=== PATIENT | male | born 1990 | race Caucasian/White ===

== ENCOUNTER 2016-07-16 05:53 | Emergency (ER) | payer SELFPAY ==
[2016-07-16] MEDS ORDERED: SODIUM CHLORIDE 0.9% FLUSH 10 ML FLUSH IVF PRN (06:15)
[2016-07-16] MEDS ORDERED: LORazepam 2 MG/ML VIAL IV PUSH ONE (06:15)
[2016-07-16] MEDS ORDERED: SODIUM CHLOR 0.9% 1000 ML INJ 1,000 ML IV ONE (06:15)
[2016-07-16 06:16] VITALS: PULSE 125; RESP 22; O2SAT 97
[2016-07-16 06:24] LABS: AUTOMATED NEUTROPHIL # 7.4 TH/MM3 (1.8-7.7); BASOPHIL % 0.5 % (0.0-2.0); EOSINOPHIL # 0.1 TH/MM3 (0-0.4); EOSINOPHIL % 0.6 % (0.0-4.0); HEMATOCRIT 42.1 % (39.0-51.0); HEMO FLAGS DIFF FINAL; LYMPH % 15.3 % (9.0-44.0); LYMPHOCYTE # 1.4 TH/MM3 (1.0-4.8); MEAN CELL VOLUME 89.4 FL (80.0-100.0); MEAN CORPUSCULAR HGB CONC 33.6 % (32.0-36.0); MONO % 5.1 % (0.0-8.0); NEUT % 78.5 % (16.0-70.0); PLATELET COUNT 186 TH/MM3 (150-450); RED BLOOD COUNT 4.71 MIL/MM3 (4.50-5.90); RED CELL DISTRIBUTION WIDTH 12.8 % (11.6-17.2); WHITE BLOOD COUNT 9.4 TH/MM3 (4.0-11.0)
--- NOTE | 2016-07-16 06:25 | PD ---
HPI Chief Complaint: OD/ Ingestion Time Seen by Provider: 06:03 Travel History International Travel<30 days: No Contact w/Intl Traveler<30days: No History of Present Illness HPI Patient is a 26-year-old male brought in by EMS after he was found unconscious by his mother. Per EMS his mother went to wake him up and had troubles so she called 911. Patient was awake and alert when EMS arrived. He admits to taking 7 or 8 equal pills which are [id number] sleep aids. There is also a lot of Benadryl found around him. He denies taking anything else. He says he was taking the medication to get high. He denies suicidal or homicidal ideation. He denies any complaints at this time. [facility] Past Medical History Medical History: Denies Significant Hx Past Surgical History Surgical History: No Previous Surgery Social History Tobacco Use: Yes Allergies-Medications (Allergen,Severity, Reaction): Coded Allergies: No Known Allergies (Unverified , 07/16/16) Reported Meds & Prescriptions Reported Meds & Active Scripts Active No Active Prescriptions or Reported Medications Review of Systems Except as stated in HPI: all other systems reviewed are Neg General / Constitutional: No: Fever, Chills Eyes: No: Blurred Vision HENT: No: Headaches, Lightheadedness Cardiovascular: No: Chest Pain or Discomfort Respiratory: No: Shortness of Breath Gastrointestinal: No: Nausea, Vomiting, Abdominal Pain Musculoskeletal: No: Myalgias, Edema Skin: No Rash, No Change in Pigmentation Physical Exam Narrative GENERAL: Awake and alert, in no acute distress. SKIN: Focused skin assessment warm/dry. HEAD: Atraumatic. Normocephalic. EYES: Pupils equal and round. No scleral icterus. Enlarged pupils. ENT: Mucous membranes pink and moist. NECK: Trachea midline. No JVD. CARDIOVASCULAR: Tachycardic. No murmur appreciated. RESPIRATORY: No accessory muscle use. Clear to auscultation. Breath sounds equal bilaterally. GASTROINTESTINAL: Abdomen soft, non-tender, nondistended. MUSCULOSKELETAL: No obvious deformities. No clubbing. No cyanosis. No edema. NEUROLOGICAL: Awake and alert. No obvious cranial nerve deficits. Motor grossly within normal limits. Normal speech. PSYCHIATRIC: Appropriate mood and affect; insight and judgment normal. Data Data Last Documented VS Vital Signs Date Time Temp Pulse Resp B/P Pulse Ox O2 Delivery O2 Flow Rate FiO2 07/16/16 12:02 96 07/16/16 08:21 98.9 117 24 140/71 Room Air Orders Electrocardiogram (07/16/16 06:03) Complete Blood Count With Diff (07/16/16 06:03) Comprehensive Metabolic Panel (07/16/16 06:03) Urinalysis - C+S If Indicated (07/16/16 06:03) Ua Includes Microscopic (07/16/16 06:03) Iv Access Insert/Monitor (07/16/16 06:03) Ecg Monitoring (07/16/16 06:03) Oximetry (07/16/16 06:03) Sodium Chloride 0.9% Flush (Ns Flush) (07/16/16 06:15) Call Poison Control (07/16/16 06:03) Drug Screen, Random Urine (07/16/16 06:03) Alcohol (Ethanol) (07/16/16 06:03) Salicylates (Aspirin) (07/16/16 06:03) Tylenol (Acetaminophen) (07/16/16 06:03) Lorazepam Inj (Ativan Inj) (07/16/16 06:15) Sodium Chlor 0.9% 1000 Ml Inj (Ns 1000 M (07/16/16 06:15) Psych Screen (07/16/16 06:33) Diet Regular Basic (07/16/16 Breakfast) Labs Laboratory Tests Test 07/16/16 07/16/16 06:00 08:40 White Blood Count 9.4 TH/MM3 Red Blood Count 4.71 MIL/MM3 Hemoglobin 14.1 GM/DL Hematocrit 42.1 % Mean Corpuscular Volume 89.4 FL Mean Corpuscular Hemoglobin 30.0 PG Mean Corpuscular Hemoglobin 33.6 % Concent Red Cell Distribution Width 12.8 % Platelet Count 186 TH/MM3 Mean Platelet Volume 8.7 FL Neutrophils (%) (Auto) 78.5 % Lymphocytes (%) (Auto) 15.3 % Monocytes (%) (Auto) 5.1 % Eosinophils (%) (Auto) 0.6 % Basophils (%) (Auto) 0.5 % Neutrophils # (Auto) 7.4 TH/MM3 Lymphocytes # (Auto) 1.4 TH/MM3 Monocytes # (Auto) 0.5 TH/MM3 Eosinophils # (Auto) 0.1 TH/MM3 Basophils # (Auto) 0.0 TH/MM3 CBC Comment DIFF FINAL Differential Comment Sodium Level 141 MEQ/L Potassium Level 3.5 MEQ/L Chloride Level 107 MEQ/L Carbon Dioxide Level 25.0 MEQ/L Anion Gap 9 MEQ/L Blood Urea Nitrogen 13 MG/DL Creatinine 1.20 MG/DL Estimat Glomerular Filtration 74 ML/MIN Rate Random Glucose 80 MG/DL Calcium Level 8.7 MG/DL Total Bilirubin 0.4 MG/DL Aspartate Amino Transf 17 U/L (AST/SGOT) Alanine Aminotransferase 21 U/L (ALT/SGPT) Alkaline Phosphatase 57 U/L Total Protein 7.1 GM/DL Albumin 4.8 GM/DL Salicylates Level LESS THAN 1.7 MG/DL Acetaminophen Level LESS THAN 2.0 MCG/ML Ethyl Alcohol Level LESS THAN 3 MG/DL Urine Color YELLOW Urine Turbidity CLEAR Urine pH 6.5 Urine Specific [place] 1.015 Urine Protein TRACE mg/dL Urine Glucose (UA) NEG mg/dL Urine Ketones NEG mg/dL Urine Occult Blood NEG Urine Nitrite NEG Urine Bilirubin NEG Urine Urobilinogen LESS THAN 2.0 MG/DL Urine Leukocyte Esterase NEG Urine WBC 1 /hpf Urine Hyaline Casts 4 /lpf Urine Granular Casts 1 /lpf Urine Mucus FEW /lpf Microscopic Urinalysis Comment CULT NOT INDICATED Urine Opiates Screen NEG Urine Barbiturates Screen NEG Urine Amphetamines Screen NEG Urine Benzodiazepines Screen NEG Urine Cocaine Screen NEG Urine Cannabinoids Screen NEG MDM Medical Decision Making Medical Screen Exam Complete: Yes Emergency Medical Condition: Yes Differential Diagnosis overdose vs intoxication vs dehydration Narrative Course Patient is a 26-year-old male brought in by EMS after his mother was unable to wake him up. Patient admits to taking 7 or 8 equal sleeping pills. His pupils are large on exam, he is tachycardic. IV established, labs sent. Given IV fluids and Ativan. Poison control contacted and advises supportive care. Patient's mother is concerned as he has done this before. She would like him seen by a psychiatrist. Patient states he was trying to get high, denies trying to hurt himself. Patient signed out to Dr. Mays to follow-up labs and disposition. Scripts No Active Prescriptions or Reported Meds Freida Holder MD Jul 16, 2016 06:25
[2016-07-16 07:08] LABS: ACETAMINOPHEN LESS THAN 2.0 MCG/ML (10.0-30.0); ALKALINE PHOSPHATASE 57 U/L (45-117); ALT (GPT) 21 U/L (12-78); ANION GAP 9 MEQ/L (5-15); AST (GOT) 17 U/L (15-37); BLOOD UREA NITROGEN 13 MG/DL (7-18); CHLORIDE 107 MEQ/L (98-107); GLOMERULAR FILTRATION RATE 74 ML/MIN (>89); POTASSIUM 3.5 MEQ/L (3.5-5.1); SODIUM (NA) 141 MEQ/L (136-145); TOTAL BILIRUBIN ADULT 0.4 MG/DL (0.2-1.0)
--- NOTE | 2016-07-16 07:09 | PD ---
Physical Exam Date Seen by Provider: Jul 16, 2016 Narrative Patient was signed out to me at 7 AM pending laboratory evaluation and psych evaluation. Patient admits to taking Benadryl at about 4 AM in an effort to get high. He denies suicidal ideation. He states that he feels fine currently. Data Data Last Documented VS Vital Signs Date Time Temp Pulse Resp B/P Pulse Ox O2 Delivery O2 Flow Rate FiO2 07/16/16 08:21 98.9 117 24 140/71 98 Room Air Orders Electrocardiogram (07/16/16 06:03) Complete Blood Count With Diff (07/16/16 06:03) Comprehensive Metabolic Panel (07/16/16 06:03) Urinalysis - C+S If Indicated (07/16/16 06:03) Ua Includes Microscopic (07/16/16 06:03) Iv Access Insert/Monitor (07/16/16 06:03) Ecg Monitoring (07/16/16 06:03) Oximetry (07/16/16 06:03) Sodium Chloride 0.9% Flush (Ns Flush) (07/16/16 06:15) Call Poison Control (07/16/16 06:03) Drug Screen, Random Urine (07/16/16 06:03) Alcohol (Ethanol) (07/16/16 06:03) Salicylates (Aspirin) (07/16/16 06:03) Tylenol (Acetaminophen) (07/16/16 06:03) Lorazepam Inj (Ativan Inj) (07/16/16 06:15) Sodium Chlor 0.9% 1000 Ml Inj (Ns 1000 M (07/16/16 06:15) Psych Screen (07/16/16 06:33) Diet Regular Basic (07/16/16 Breakfast) Labs Laboratory Tests Test 07/16/16 07/16/16 06:00 08:40 White Blood Count 9.4 TH/MM3 Red Blood Count 4.71 MIL/MM3 Hemoglobin 14.1 GM/DL Hematocrit 42.1 % Mean Corpuscular Volume 89.4 FL Mean Corpuscular Hemoglobin 30.0 PG Mean Corpuscular Hemoglobin 33.6 % Concent Red Cell Distribution Width 12.8 % Platelet Count 186 TH/MM3 Mean Platelet Volume 8.7 FL Neutrophils (%) (Auto) 78.5 % Lymphocytes (%) (Auto) 15.3 % Monocytes (%) (Auto) 5.1 % Eosinophils (%) (Auto) 0.6 % Basophils (%) (Auto) 0.5 % Neutrophils # (Auto) 7.4 TH/MM3 Lymphocytes # (Auto) 1.4 TH/MM3 Monocytes # (Auto) 0.5 TH/MM3 Eosinophils # (Auto) 0.1 TH/MM3 Basophils # (Auto) 0.0 TH/MM3 CBC Comment DIFF FINAL Differential Comment Sodium Level 141 MEQ/L Potassium Level 3.5 MEQ/L Chloride Level 107 MEQ/L Carbon Dioxide Level 25.0 MEQ/L Anion Gap 9 MEQ/L Blood Urea Nitrogen 13 MG/DL Creatinine 1.20 MG/DL Estimat Glomerular Filtration 74 ML/MIN Rate Random Glucose 80 MG/DL Calcium Level 8.7 MG/DL Total Bilirubin 0.4 MG/DL Aspartate Amino Transf 17 U/L (AST/SGOT) Alanine Aminotransferase 21 U/L (ALT/SGPT) Alkaline Phosphatase 57 U/L Total Protein 7.1 GM/DL Albumin 4.8 GM/DL Salicylates Level LESS THAN 1.7 MG/DL Acetaminophen Level LESS THAN 2.0 MCG/ML Ethyl Alcohol Level LESS THAN 3 MG/DL Urine Color YELLOW Urine Turbidity CLEAR Urine pH 6.5 Urine Specific [place] 1.015 Urine Protein TRACE mg/dL Urine Glucose (UA) NEG mg/dL Urine Ketones NEG mg/dL Urine Occult Blood NEG Urine Nitrite NEG Urine Bilirubin NEG Urine Urobilinogen LESS THAN 2.0 MG/DL Urine Leukocyte Esterase NEG Urine WBC 1 /hpf Urine Hyaline Casts 4 /lpf Urine Granular Casts 1 /lpf Urine Mucus FEW /lpf Microscopic Urinalysis Comment CULT NOT INDICATED [facility] Supervised Visit with ROSA: No Narrative Course Patient is lying in the room using his cell phone in no acute distress. He is awake and alert and fully oriented at this time. CBC & BMP Diagram 07/16/16 06:00 Salicylates, acetaminophen and alcohol levels are not detected. This patient is now medically clear for psychiatric evaluation. Diagnosis Primary Impression: Overdose of common cold drug Qualified Code: T48.5X4A - Overdose of common cold drug, undetermined intent, initial encounter Scripts No Active Prescriptions or Reported Meds Disposition: DISCHARGE HOME Condition: Stable Kathryn Mays MD Jul 16, 2016 07:09
[2016-07-16 08:21] VITALS: BP 140/71; PULSE 117; RESP 24; TEMP 98.9; O2SAT 98
[2016-07-16 09:02] LABS: BLOOD, URINE NEG (NEG); GLUCOSE,URINE NEG (NEG); GRANULAR CAST, URINE 1 /lpf; HYALINE CAST, URINE 4 /lpf (RARE); KETONE, URINE NEG (NEG); MUCUS URINE FEW /lpf (OCC); NITRITE,URINE NEG (NEG); PH, URINE 6.5 (5.0-8.5); URINE COLOR YELLOW (YELLW/STRAW)
[2016-07-16 09:03] LABS: COMMENT (UR) CULT NOT INDICATED; CULTURE IF INDICATED CULT NOT INDICATED
--- NOTE | 2016-07-16 09:05 | EKG ---
Date Performed: 07/16/2016 Time Performed: 06:19:26 PTAGE: 26 years EKG: SINUS TACHYCARDIA ABNORMAL RHYTHM ECG NO PREVIOUS TRACING DOCTOR: Sukhjinder Meadows Interpretating Date/Time 07/16/2016 09:03:32
--- NOTE | 2016-07-16 09:38 | MB ---
cc: ILIR SOARES DATE OF CONSULTATION 07/16/2016 PHYSICIAN REQUESTING CONSULTATION Emergency department REASON FOR CONSULTATION Psychiatric evaluation HISTORY OF PRESENT ILLNESS Mr. Jenkins is a 26-year-old male with no reported past psychiatric history who presents having been brought in by EMS after he was found unconscious by his adoptive mother. Urine toxicology is not available for my review and alcohol level was undetectable on presentation here. The patient reported that he was with a lot of Benadryl around him. Reviewing the electronic medical record, I see no prior visits to [place] [facility]. The patient seen and examined. Chart reviewed. Case discussed with nurse in the medical ED. On my examination today, the patient is clinically sober. He reports that he has been recreationally abusing Benadryl tablets for at least the last several months. He says that he typically uses six or seven x 25 mg tablets daily. He denies any suicidal intent in this use and says that is purely recreational. He denies any suicidal or homicidal ideation, intent or plan now. He denies any issues with low mood or elevated mood and I can elicit no depressive or hypomanic/manic symptoms. He reports that his sleep and appetite are fair. He denies any audiovisual hallucinations and I can elicit no delusional beliefs. The remainder of the psychiatric ROS is negative. With the patient's permission, I have obtained collateral from the patient's mother over the telephone, Meme Haider, at the number in the electronic medical record: Ms. Haider reports that the patient has no diagnosed psychiatric history. He is adopted but she suspects his biological sister had bipolar disorder. He has no history of suicide attempts. She notes that he has been abusing the Benadryl for some time and was taken to [facility] under similar circumstances following ingestion of Benadryl for recreational purposes. I have discussed with the patient's mother my concerns that the patient has substance use disordered and have suggested that she pursue the [place] [facility] to get the patient help for his substance use as he is unwilling to do so for himself at this time. She agrees to go down to the court house today to initiate the proceedings. PAST PSYCHIATRIC HISTORY The patient denies a history of psychiatric diagnosis. He denies a history of inpatient or outpatient psychiatric treatment. He denies a history of suicide attempts. FAMILY HISTORY The patient reports that his sister has some sort of mental illness, but he is not sure of the diagnosis. CHEMICAL DEPENDENCY HISTORY Besides the use of Benadryl as detailed above, the patient denies any substance use. Urine toxicology is not available for my review at this time. SOCIAL HISTORY The patient reports that he lives with his adoptive mother in [place]. He is high school educated. He works delivering pieces. He is single with no children. He denies any or legal history. He denies any access to guns or firearms. He denies any restorationism or spiritual beliefs. PAST MEDICAL HISTORY The patient denies any medical issues. REVIEW OF SYSTEMS No reported headache, vision or hearing changes, chest pain, shortness of breath, bowel or bladder issues. No other physical complaints. PHYSICAL EXAM VITAL SIGNS: Temperature 98.9, pulse 117, respirations 24, blood pressure 140/71, pulse oximetry 98% on room air. GENERAL: Physical examination completed by the ED provider. On my examination today, the patient appears to be well-nourished and well-developed in no acute physical distress. He is a little fidgety but no other motoric abnormalities noted. LABORATORY REVIEWED CBC is unremarkable. CMP is unremarkable except for mildly decreased GFR. Alcohol level undetectable. Urinalysis is presently pending. MENTAL STATUS EXAM The patient is in hospital gown. He is fairly well-groomed and certainly maintaining basic hygiene. He is awake and alert and oriented x3. Motor exam as above. Speech is within normal limits for rate, tone and volume. Language and fund of knowledge seem average. Mood is fair and affect is full and reactive. Thought process linear. No loosening of associations. No evident delusions. Denies audiovisual hallucinations. Denies suicidal or homicidal ideation, intent or plan. Insight and judgment are likely poor particularly with respect to substance use. ASSESSMENT/PLAN 1. 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 He reports this use is recreational and collateral from mother supports this. He denies any suicidal or homicidal ideation. He appears to be attending to his basic needs. I can detect no unstable mood, anxiety or psychotic disorder in this patient at this time. Putting this information together, I process inspector the patient does not meet [place] [facility] criteria, nor would he benefit from admission to a general inpatient psychiatric unit. The patient is substance use disordered and I have strongly recommended that he let me get him help for this today, for example by referring him to a drug treatment facility. The patient has declined. I have suggested to the mother to pursue the [place]. She will do so. I have counseled the patient regarding warning signs for need to return to the psychiatric emergency room as part of a general safety plan. The patient is psychiatrically clear for discharge from the ED. The case discussed with RN. Thank you very much for this consultation. Ilir ALVAREZ /9:02 AM /9:24 AM MTDD
[2016-07-16 14:40] LABS: AMPHETAMINE, URINE NEG (NEG); BARBITURATES, URINE NEG (NEG); COCAINE, URINE NEG (NEG)
== END 2016-07-16 12:00 | disposition home or self-care (01) ==
LOC: NEPC 05:53
DX: T45.0X4A Poisoning by antiallergic and antiemetic drugs, undetermined, initial encounter (principal); F13.10 Sedative, hypnotic or anxiolytic abuse, uncomplicated; R00.0 Tachycardia, unspecified
CPT/HCPCS: 80053; 80307; 81001; 85025; 93005; 96361; 96374; 99284; J2060; J7030